=== PATIENT | female | born 1950 | race Caucasian/White ===

== ENCOUNTER 2017-02-24 13:53 | Inpatient (IN) | payer MEDICARE, OTHER ==
[~2017-02-24] VITALS: Ht 165.1 cm; Wt 100.0 kg
[~2017-02-24 13:53] MED LIST: ACIT10CA2 PO; ASPI-515 PO; CALC-570 PO; CLIN150C14 PO; DICY20TA29 PO; FURO40TA6 PO; HYDR25TA11 PO; LEVO100T PO; NYST15CR2 TP; OXYC5CAP2 PO; POTA20PA PO; ROPI2TAB6 PO
[2017-02-24] MEDS ORDERED: SODIUM CHLORIDE 0.9% 1,000 ML IV ONE ×2 (14:04→15:55)
[2017-02-24] MEDS ORDERED: SODIUM CHLORIDE 0.9% 1,000ML IVBOLUS ONE ×2 (14:30→16:00)
[2017-02-24 14:35] LABS: HEMATOCRIT 42.4 % (34.6-47.8); HEMOGLOBIN 14.5 g/dL (11.7-16.4); WHITE BLOOD COUNT 10.7 x10^3/uL (3.4-10)
[2017-02-24 14:38] LABS: DIFF TOTAL CELLS COUNTED 100 CELL DIFF
[2017-02-24 15:07] LABS: BLOOD UREA NITROGEN 22 mg/dL (7-18)
[2017-02-24 15:08] LABS: VERIFY COUNTS? YES
[2017-02-24] MEDS ORDERED: SODIUM CHLORIDE FLUSH 10ML SYR IVF ONE (16:00)
[2017-02-24] MEDS ORDERED: HYDROmorphone 1 MG/ML, 1ML IVPush PRN (16:00)
[2017-02-24] MEDS ORDERED: VANCOMYCIN PER PHARMACY IV ONE (16:00)
[2017-02-24] MEDS ORDERED: ONDANSETRON 2MG/ML, 2ML IVPush ONE (16:00)
[2017-02-24] MEDS ORDERED: AZAT50TA9 PO (16:21)
[2017-02-24] MEDS ORDERED: MINO100C PO (16:21)
[2017-02-24] MEDS ORDERED: PRED10TA PO (16:21)
[2017-02-24] MEDS ORDERED: RIVA20TA PO (16:21)
[2017-02-24] MEDS ORDERED: FERR325T5 PO (16:21)
[2017-02-24] MEDS ORDERED: ROPI3TAB PO (16:21)
[2017-02-24] MEDS ORDERED: DESO15CR10 TP (16:21)
[2017-02-24] MEDS ORDERED: VANCOMYCIN 1,800 MG in SODIUM CHLORIDE 0.9% 250 ML IV ONE (16:30)
[2017-02-24] MEDS ORDERED: VANCOMYCIN PER PHARMACY MC PRN (17:30)
[2017-02-24] MEDS ORDERED: PHARMACY MAY ADJ FOR RENAL FX MC PRN (17:30)
[2017-02-24] MEDS ORDERED: ONDANSETRON ODT 4 MG PO PRN (17:30)
[2017-02-24] MEDS ORDERED: ONDANSETRON 2MG/ML, 2ML IVPush PRN (17:30)
[2017-02-24 17:50] VITALS: BP 149/85
[2017-02-24] MEDS ORDERED: HYDROmorphone 1 MG/ML, 1ML ONE (17:55)
[2017-02-24] MEDS ORDERED: POTASSIUM CHLORIDE 20 MEQ TAB.ER.PRT PO ONE (18:00)
[2017-02-24] MEDS ORDERED: PHARMACOKINETIC CONSULTATION MC ONE (18:00)
[2017-02-24] MEDS ORDERED: PHARMACOKINETIC MONITORING MC PRN (18:30)
[2017-02-24 19:30] VITALS: BP 123/71
[2017-02-24] MEDS: AMPICILLIN/SULBACTAM 3 GM in SODIUM CHLORIDE 0.9% 100 ML IV SCH (20:00)
[2017-02-24] MEDS: ROPINIROLE 1MG TABLET PO SCH ×2 (21:00→21:08)
[2017-02-24] MEDS: NYSTATIN/TRIAMCINOLONE CRM 15GM TP SCH (21:00)
[2017-02-24] MEDS: DICYCLOMINE 20 MG TABLET PO SCH ×2 (21:00→21:08)
[2017-02-24] MEDS: AZATHIOPRINE 50 MG TABLET PO SCH (21:07)
[2017-02-24] MEDS: MINOCYCLINE 100MG CAPSULE PO SCH (21:08)
[2017-02-24] MEDS: ACETAMINOPHEN 325 MG TABLET PO PRN (21:13)
[2017-02-25] MEDS: AMPICILLIN/SULBACTAM 3 GM in SODIUM CHLORIDE 0.9% 100 ML IV SCH ×4 (01:51→19:35)
[2017-02-25 02:30] VITALS: BP 114/70
[2017-02-25 05:43] LABS: HEMATOCRIT 35.6 % (34.6-47.8); HEMOGLOBIN 12.2 g/dL (11.7-16.4); WHITE BLOOD COUNT 11.2 x10^3/uL (3.4-10)
[2017-02-25] MEDS: DICYCLOMINE 20 MG TABLET PO SCH ×4 (05:52→20:40)
[2017-02-25 05:57] LABS: DIFF TOTAL CELLS COUNTED 100 CELL DIFF
[2017-02-25 05:58] LABS: ASPARTATE AMINO TRANSFERASE 27 U/L (15-37); BLOOD UREA NITROGEN 21 mg/dL (7-18)
[2017-02-25 05:59] LABS: VERIFY COUNTS? YES
[2017-02-25 06:00] LABS: POLYCHROMASIA 1+
[2017-02-25] MEDS ORDERED: LEVOTHYROXINE 100 MCG TABLET PO SCH (06:00)
[2017-02-25 08:00] VITALS: BP 117/69
[2017-02-25] MEDS: RIVAROXABAN 20 MG TABLET PO SCH (09:49)
[2017-02-25] MEDS: ROPINIROLE 1MG TABLET PO SCH ×3 (09:49→20:42)
[2017-02-25] MEDS: ASPIRIN 81 MG TABLET EC PO SCH (09:49)
[2017-02-25] MEDS: AZATHIOPRINE 50 MG TABLET PO SCH ×2 (09:50→20:42)
[2017-02-25] MEDS: POTASSIUM CHLORIDE 20 MEQ PACKET PO SCH (09:50)
[2017-02-25] MEDS: NYSTATIN/TRIAMCINOLONE CRM 15GM TP SCH ×3 (09:50→20:40)
[2017-02-25] MEDS: FUROSEMIDE 40 MG TABLET PO SCH (09:50)
[2017-02-25] MEDS: MINOCYCLINE 100MG CAPSULE PO SCH ×2 (09:50→20:42)
[2017-02-25 14:30] VITALS: BP 116/73
[2017-02-25] MEDS: VANCOMYCIN 1,500 MG in SODIUM CHLORIDE 0.9% 250 ML IV SCH (16:28)
[2017-02-25 20:00] VITALS: BP 135/76
[2017-02-26] MEDS: AMPICILLIN/SULBACTAM 3 GM in SODIUM CHLORIDE 0.9% 100 ML IV SCH ×4 (01:55→20:51)
[2017-02-26 02:05] VITALS: BP 145/76
[2017-02-26 04:41] LABS: HEMATOCRIT 36.4 % (34.6-47.8); HEMOGLOBIN 12.2 g/dL (11.7-16.4); WHITE BLOOD COUNT 11.9 x10^3/uL (3.4-10)
[2017-02-26 05:08] LABS: BLOOD UREA NITROGEN 23 mg/dL (7-18)
[2017-02-26] MEDS: DICYCLOMINE 20 MG TABLET PO SCH ×2 (05:17→11:51)
[2017-02-26] MEDS: LEVOTHYROXINE 125 MCG TABLET PO SCH (06:14)
[2017-02-26 07:19] VITALS: BP 137/73
[2017-02-26] MEDS: AZATHIOPRINE 50 MG TABLET PO SCH ×2 (07:54→20:51)
[2017-02-26] MEDS: MINOCYCLINE 100MG CAPSULE PO SCH ×2 (07:54→20:51)
[2017-02-26] MEDS: ROPINIROLE 1MG TABLET PO SCH ×3 (07:55→21:00)
[2017-02-26] MEDS: RIVAROXABAN 20 MG TABLET PO SCH (07:55)
[2017-02-26] MEDS: POTASSIUM CHLORIDE 20 MEQ PACKET PO SCH (07:56)
[2017-02-26] MEDS: NYSTATIN/TRIAMCINOLONE CRM 15GM TP SCH ×3 (07:56→20:54)
[2017-02-26] MEDS: FUROSEMIDE 40 MG TABLET PO SCH (07:57)
[2017-02-26] MEDS: ASPIRIN 81 MG TABLET EC PO SCH (07:57)
[2017-02-26 12:11] VITALS: BP 127/78
[2017-02-26] MEDS: VANCOMYCIN 1,500 MG in SODIUM CHLORIDE 0.9% 250 ML IV SCH (15:53)
[2017-02-26 18:28] VITALS: BP 137/70
[2017-02-27 02:15] VITALS: BP 145/82
[2017-02-27] MEDS: AMPICILLIN/SULBACTAM 3 GM in SODIUM CHLORIDE 0.9% 100 ML IV SCH ×4 (03:36→20:43)
[2017-02-27] MEDS: ACETAMINOPHEN 325 MG TABLET PO PRN ×2 (03:37→22:48)
[2017-02-27 05:45] LABS: HEMATOCRIT 36.7 % (34.6-47.8); HEMOGLOBIN 12.5 g/dL (11.7-16.4); WHITE BLOOD COUNT 10.7 x10^3/uL (3.4-10)
[2017-02-27 05:53] LABS: BLOOD UREA NITROGEN 25 mg/dL (7-18)
[2017-02-27] MEDS: LEVOTHYROXINE 125 MCG TABLET PO SCH (06:22)
[2017-02-27 06:30] VITALS: BP 145/75
[2017-02-27] MEDS: ROPINIROLE 1MG TABLET PO SCH ×4 (08:28→21:14)
[2017-02-27] MEDS: MINOCYCLINE 100MG CAPSULE PO SCH ×2 (08:28→20:44)
[2017-02-27] MEDS: RIVAROXABAN 20 MG TABLET PO SCH (08:29)
[2017-02-27] MEDS: AZATHIOPRINE 50 MG TABLET PO SCH ×2 (08:30→20:43)
[2017-02-27] MEDS: ASPIRIN 81 MG TABLET EC PO SCH (08:30)
[2017-02-27] MEDS: FUROSEMIDE 40 MG TABLET PO SCH (08:30)
[2017-02-27] MEDS: NYSTATIN/TRIAMCINOLONE CRM 15GM TP SCH ×3 (08:34→20:49)
[2017-02-27] MEDS: POTASSIUM CHLORIDE 20 MEQ TAB.ER.PRT PO SCH (10:00)
[2017-02-27 13:44] VITALS: BP 145/83
[2017-02-27] MEDS ORDERED: POTASSIUM CHLORIDE 20 MEQ TAB.ER.PRT PO ONE (15:00)
[2017-02-27] MEDS: VANCOMYCIN 1,500 MG in SODIUM CHLORIDE 0.9% 250 ML IV SCH (16:31)
[2017-02-27 19:21] VITALS: BP 145/75
[2017-02-28 01:23] VITALS: BP 153/80
[2017-02-28] MEDS: ACETAMINOPHEN 325 MG TABLET PO PRN ×2 (03:21→21:02)
[2017-02-28] MEDS: AMPICILLIN/SULBACTAM 3 GM in SODIUM CHLORIDE 0.9% 100 ML IV SCH ×4 (03:21→20:54)
[2017-02-28 05:21] LABS: HEMATOCRIT 33.4 % (34.6-47.8); HEMOGLOBIN 11.4 g/dL (11.7-16.4)
[2017-02-28 06:06] LABS: ASPARTATE AMINO TRANSFERASE 19 U/L (15-37); BLOOD UREA NITROGEN 27 mg/dL (7-18)
[2017-02-28 06:25] VITALS: BP 148/81
[2017-02-28] MEDS: LEVOTHYROXINE 125 MCG TABLET PO SCH (06:33)
[2017-02-28] MEDS: POTASSIUM CHLORIDE 20 MEQ TAB.ER.PRT PO SCH (08:53)
[2017-02-28] MEDS: ROPINIROLE 1MG TABLET PO SCH ×3 (08:53→20:55)
[2017-02-28] MEDS: NYSTATIN/TRIAMCINOLONE CRM 15GM TP SCH ×3 (08:53→21:00)
[2017-02-28] MEDS: RIVAROXABAN 20 MG TABLET PO SCH (08:53)
[2017-02-28] MEDS: AZATHIOPRINE 50 MG TABLET PO SCH ×2 (08:54→20:55)
[2017-02-28] MEDS: MINOCYCLINE 100MG CAPSULE PO SCH ×2 (08:54→20:54)
[2017-02-28] MEDS: ASPIRIN 81 MG TABLET EC PO SCH (08:54)
[2017-02-28] MEDS: FUROSEMIDE 40 MG TABLET PO SCH (08:54)
[2017-02-28] MEDS ORDERED: POTASSIUM CHLORIDE 20 MEQ TAB.ER.PRT PO ONE (11:00)
[2017-02-28 12:20] VITALS: BP 148/72
[2017-02-28] MEDS: HEPARIN 5,000 UNITS/ML, 1ML SQ SCH ×2 (13:23→20:56)
[2017-02-28 20:00] VITALS: BP 148/79
[2017-03-01 01:30] VITALS: BP 158/79
[2017-03-01] MEDS: AMPICILLIN/SULBACTAM 3 GM in SODIUM CHLORIDE 0.9% 100 ML IV SCH ×3 (03:38→15:11)
[2017-03-01] MEDS: HEPARIN 5,000 UNITS/ML, 1ML SQ SCH ×2 (05:30→13:04)
[2017-03-01] MEDS: LEVOTHYROXINE 125 MCG TABLET PO SCH (05:31)
[2017-03-01 05:32] LABS: BLOOD UREA NITROGEN 30 mg/dL (7-18)
[2017-03-01 06:27] VITALS: BP 162/85
[2017-03-01] MEDS: FUROSEMIDE 40 MG TABLET PO SCH (08:33)
[2017-03-01] MEDS: ROPINIROLE 1MG TABLET PO SCH (08:35)
[2017-03-01] MEDS: ASPIRIN 81 MG TABLET EC PO SCH (08:35)
[2017-03-01] MEDS: MINOCYCLINE 100MG CAPSULE PO SCH (08:36)
[2017-03-01] MEDS: AZATHIOPRINE 50 MG TABLET PO SCH (08:37)
[2017-03-01] MEDS: NYSTATIN/TRIAMCINOLONE CRM 15GM TP SCH ×2 (08:37→15:12)
[2017-03-01] MEDS ORDERED: POTASSIUM CHLORIDE 20 MEQ TAB.ER.PRT PO SCH (09:00)
[2017-03-01] MEDS ORDERED: LINE600T37 PO (12:12)
[2017-03-01] MEDS ORDERED: TRAM50TA2 PO (12:12)
[2017-03-01] MEDS ORDERED: LINEZOLID 600 MG TABLET PO SCH (12:23)
[2017-03-01 16:46] VITALS: BP 136/85
== END 2017-03-01 16:57 | disposition home or self-care (01) | DRG 602 ==
LOC: ED 16:04 → 4NOR 16:05 → ED 17:00
PROVIDERS: ADMIT Internal Medicine; ATTEND Internal Medicine
DX: L03.115 Cellulitis of right lower limb (principal); E43 Unspecified severe protein-calorie malnutrition; K51.90 Ulcerative colitis, unspecified, without complications; E78.00 Pure hypercholesterolemia, unspecified; E11.65 Type 2 diabetes mellitus with hyperglycemia; N81.10 Cystocele, unspecified; M35.3 Polymyalgia rheumatica; E89.0 Postprocedural hypothyroidism; Y83.8 Other surgical procedures as the cause of abnormal reaction of the patient, or of later complication, without mention of misadventure at the time of the procedure; N81.6 Rectocele; E87.6 Hypokalemia; G25.81 Restless legs syndrome; I10 Essential (primary) hypertension; L80 Vitiligo; Q82.8 Other specified congenital malformations of skin; Z79.01 Long term (current) use of anticoagulants; Z79.52 Long term (current) use of systemic steroids; Z79.84 Long term (current) use of oral hypoglycemic drugs; Z86.718 Personal history of other venous thrombosis and embolism; Z79.82 Long term (current) use of aspirin; Z79.899 Other long term (current) drug therapy; Z68.36 Body mass index [BMI] 36.0-36.9, adult
CPT/HCPCS: 36415; 80048; 80053; 80202; 82040; 82550; 83036; 83605; 83735; 84100; 84443; 85025; 87040; 93922; 96365; 96375; J0295; J1644; J3370; J7500; J7030; J7050; J7512; Q0177

== ENCOUNTER → 2017-04-17 | Outpatient (CLI) | payer MEDICARE, OTHER ==
[~2017-04-17] MED LIST changes: +AZAT50TA9 PO; +DESO15CR10 TP; +FERR325T5 PO; +LINE600T37 PO; +MINO100C PO; +PRED10TA PO; +RIVA20TA PO; +ROPI3TAB PO; +TRAM50TA2 PO
== END | disposition home or self-care (01) ==
LOC: CFH 11:32
PROVIDERS: ATTEND Family Medicine
DX: Z12.31 Encounter for screening mammogram for malignant neoplasm of breast (principal)
CPT/HCPCS: 77067

== ENCOUNTER → 2017-11-11 | Outpatient (CLI) | payer MEDICARE, OTHER ==
[~2017-11-11] MED LIST changes: +FLUC150T2 PO; +FURO20TA3 PO; +HYDR50TA13 PO; +LEVO125T PO; +POTA20TA89 PO
== END | disposition home or self-care (01) ==
LOC: RAD 12:59
PROVIDERS: ATTEND Internal Medicine Nephrology
DX: M79.604 Pain in right leg (principal); M79.605 Pain in left leg; R60.0 Localized edema
CPT/HCPCS: 93970

== ENCOUNTER → 2018-02-15 | Outpatient (CLI) | payer MEDICARE, OTHER ==
[~2018-02-15] MED LIST changes: -POTA20PA PO; +POTA20PA31 PO
== END | disposition home or self-care (01) ==
LOC: CFH 11:07
PROVIDERS: ATTEND Specialist
DX: Z13.820 Encounter for screening for osteoporosis (principal); M81.0 Age-related osteoporosis without current pathological fracture
CPT/HCPCS: 77080

== ENCOUNTER 2018-02-25 13:09 | Emergency (ER) | payer MEDICARE, OTHER ==
[~2018-02-25] VITALS: Ht 160 cm; Wt 91.9 kg
[2018-02-25 13:50] LABS: BASOPHILS # (AUTO) 0.08 x10^3/uL (0-0.1); BASOPHILS % (AUTO) 1 % (0-1); EOSINOPHILS # (AUTO) 0.45 x10^3/uL (0-0.4); EOSINOPHILS % (AUTO) 5 % (1-7); LYMPHOCYTES # (AUTO) 3.82 x10^3/uL (1-3.4); LYMPHOCYTES % (AUTO) 41 % (22-44); MD NO; MEAN CORPUSCULAR HEMOGLOBIN 34.9 pg (27.0-34.8); MEAN CORPUSCULAR HGB CONC 33.6 g/dL (32.4-35.8); MEAN CORPUSCULAR VOLUME 103.7 fL (80-100); MEAN PLATELET VOLUME 9.9 fL (7.4-10.4); MONOCYTES # (AUTO) 0.86 x10^3/uL (0.2-0.8); MONOCYTES % (AUTO) 9 % (2-9); NEUTROPHILS # (AUTO) 4.23 x10^3/uL (1.8-6.8); NEUTROPHILS % (AUTO) 45 % (42-75); PLATELET COUNT 241 x10^3/uL (130-400); RED BLOOD COUNT 3.89 x10^6/uL (3.82-5.3); RED CELL DISTRIBUTION WIDTH 17.3 % (9.6-15.2)
[2018-02-25 14:02] LABS: ALANINE AMINOTRANSFERASE 37 U/L (12-78); ALBUMIN 3.3 g/dL (3.4-5.0); ANION GAP 9 mmol/L (5-15); CALCIUM 8.3 mg/dL (8.5-10.1); CHLORIDE 112 mmol/L (98-107); CREATININE 1.27 mg/dL (0.55-1.02)
[2018-02-25 14:07] LABS: ALKALINE PHOSPHATASE 101 U/L (45-117); BILIRUBIN,TOTAL 0.3 mg/dL (0.2-1.0); TOTAL PROTEIN 6.9 g/dL (6.4-8.2)
[2018-02-25 15:43] VITALS: BP 137/71
== END 2018-02-25 15:45 | disposition home or self-care (01) ==
LOC: ED 15:27
DX: I83.11 Varicose veins of right lower extremity with inflammation (principal); I87.2 Venous insufficiency (chronic) (peripheral); R60.9 Edema, unspecified; I10 Essential (primary) hypertension; E78.00 Pure hypercholesterolemia, unspecified; E03.9 Hypothyroidism, unspecified; E11.21 Type 2 diabetes mellitus with diabetic nephropathy
CPT/HCPCS: 36415; 71046; 80053; 83880; 85025; 93005; 93970; 99284

== ENCOUNTER → 2019-05-03 | Outpatient (CLI) | payer OTHER ==
[~2019-05-03] MED LIST changes: +HYDR-826 PO; -HYDR25TA11 PO; -HYDR50TA13 PO; +HYDR50TA99 PO; +LINE600T12 PO; -LINE600T37 PO; -MINO100C PO; +MINO100C61 PO
== END | disposition home or self-care (01) ==
LOC: CFH 10:00
PROVIDERS: ATTEND Family Medicine
DX: Z12.31 Encounter for screening mammogram for malignant neoplasm of breast (principal)
CPT/HCPCS: 77067